=== PATIENT | male | born 1970 | race Two or more races ===

== ENCOUNTER 2023-05-08 16:16 | Emergency (ER) | payer OTHER ==
[~2023-05-08] VITALS: Ht 172.7 cm; Wt 87.6 kg
[2023-05-08 18:38] LABS: Basophils # (auto) 0 10 ^3/uL (0-0.2); Basophils % (auto) 0.6 % (0.0-2.0); Eosinophils # (auto) 0.1 10 ^3/uL (0-0.8); Eosinophils % (auto) 0.7 % (0.0-7.0); Hematocrit 40.9 % (41.0-53.0); Lymphocytes # (auto) 2.3 10 ^3/uL (0.4-5.4); Lymphocytes % (auto) 27.2 % (10.0-50.0); Mean Corpuscular Hemoglobin 30.4 pg (28.0-32.0); Mean Corpuscular Hgb Conc. 34.2 g/dL (32.0-36.0); Monocytes # (auto) 0.6 10 ^3/uL (0-1.3); Monocytes % (auto) 6.8 % (0.0-12.0); Neutrophils # (auto) 5.6 10 ^3/uL (1.6-8.6); Neutrophils % (auto) 64.7 % (37.0-80.0); Nucleated Red Blood Cells % 0.1 %; Red Blood Cells 4.59 10^6/uL (4.5-5.90); Red Cell Distribution Width 13.6 % (11.8-14.3); White Blood Cell 8.6 10^3/uL (4.4-10.8)
[2023-05-08 19:07] LABS: Alanine Aminotransferase 18 U/L (7-40); Alkaline Phosphatase 87 U/L (46-116); Aspartate Aminotransferase 12 U/L (13-40); Calcium 9.1 mg/dL (8.7-10.4); Carbon Dioxide 30 mmol/L (20-30); Chloride 105 mmol/L (98-107)
[2023-05-08 19:08] LABS: Albumin 4.7 g/dL (3.2-4.8); Anion Gap 5 (5-15); BUN/Creatinine Ratio 11.8 (10.0-20.0); Blood Urea Nitrogen 10 mg/dL (9-23); Glucose 152 mg/dL (74-106); Potassium 3.3 mmol/L (3.5-5.1); Sodium 140 mmol/L (136-145)
[2023-05-08 19:09] LABS: Bilirubin, Total 0.5 mg/dL (0.2-1.0); Total Protein 7.5 g/dL (5.7-8.2)
[2023-05-08] MEDS ORDERED: AUG875T PO (19:39)
[2023-05-08] MEDS ORDERED: MUPI2OIN2 EX (19:39)
[2023-05-08] MEDS ORDERED: IBUP1TAB5 PO (19:39)
[2023-05-08] MEDS ORDERED: TETANUS-DIPTH-ACEL PERTUSSIS 0.5ML SYR Tdap IM ONE (19:45)
[2023-05-08] MEDS ORDERED: AMPICILLIN & SULBACTAM SODIUM 3 GM in SODIUM CHL 0.9% 100 ML IV ONE (19:45)
[2023-05-08] MEDS ORDERED: NEOMYCIN-BACITRACIN-POLYM UNITDOSE PKG TOP OINT TOP ONE (19:45)
[2023-05-08] MEDS ORDERED: HYDROcodone-ACET 5/325MG TAB PO ONE (21:00)
[2023-05-08 21:43] VITALS: BP 143/102; PULSE 87; RESP 18; TEMP 98.5; O2SAT 98
== END 2023-05-08 21:49 | disposition home or self-care (01) ==
LOC: ER 16:16
DX: S61.011A Laceration without foreign body of right thumb without damage to nail, initial encounter (principal); S61.031A Puncture wound without foreign body of right thumb without damage to nail, initial encounter; S61.051A Open bite of right thumb without damage to nail, initial encounter; L03.011 Cellulitis of right finger; Z79.2 Long term (current) use of antibiotics; Z79.1 Long term (current) use of non-steroidal anti-inflammatories (NSAID); Z79.899 Other long term (current) drug therapy; W54.0XXA Bitten by dog, initial encounter; Y93.89 Activity, other specified; Y92.89 Other specified places as the place of occurrence of the external cause; Y99.8 Other external cause status
CPT/HCPCS: 36415; 73130; 80053; 85025; 90471; 90715; 96365